=== PATIENT | male | born 1990 | race Caucasian/White ===

== ENCOUNTER 2017-01-19 09:05 | Emergency (ER) | payer BC ==
[~2017-01-19] VITALS: Wt 90.0 kg
[~2017-01-19 09:05] MED LIST: ACET325T33 PO; ACET500C5 PO; ATA50 PO; BENZ100C70 PO; D-ME118S6 PO; IBUP-1542 PO; LORA1TAB54 PO; PRED50 PO; PROM6.2514 PO; RANI150T5 PO; UDROBDM PO
[2017-01-19] MEDS ORDERED: CLOT30CR24 TOP (09:26)
--- NOTE | 2017-01-19 12:12 | ERD ---
DATE OF SERVICE: 01/19/2017 HISTORY OF PRESENT ILLNESS: The patient is a 26-year-old male complaining of a rash on his scalp fo r a few days. Patient states that he has not noticed it before, but got his hair cut and they recom mended he get it evaluated. He states that he has never had anything like this before. It is occas ionally itchy. It is not painful. He has not used any medications on it. PAST MEDICAL HISTORY: Denies any medical problems. ALLERGIES TO MEDICATIONS: DENIES. PAST SURGICAL HISTORY: Denies. HOSPITALIZATIONS: Denies. REVIEW OF SYSTEMS: A 12-point review of systems was done. Refer to HPI for positives, all other sy stems negative. PHYSICAL EXAMINATION: VITAL SIGNS: Temperature is 98.6, pulse 85, blood pressure is 141/84, respiratory rate 20, O2 satur ation 98% on room air. Pain intensity is 0/10. GENERAL: The patient is well-appearing, well-nourished, in no acute distress. HEENT: Atraumatic. Conjunctivae are pink. Pupils equal, round, and reactive to light. There is no s cleral icterus. Tympanic membranes clear bilaterally. Oropharynx clear. No nystagmus or photophobia . CHEST: Clear to auscultation bilaterally. There are no rales, wheezes or rhonchi. HEART: Regular rate and rhythm. No murmurs, clicks, rubs or gallops. No S3 or S4. ABDOMEN: Soft, nontender and nondistended. Good bowel sounds. No rebound or guarding. No gross danuta tonitis. No gross organomegaly or masses. No Moore sign or McBurney point tenderness. SKIN: The patient has erythematous circular patches noted on the scalp with central clearing. Ther e are no pustules. No open sores. DIAGNOSIS: Tinea. MEDICAL DECISION MAKING: Patient's exam is concerning for tinea. PLAN: I have low suspicion for life threatening rash. The patient was told if symptoms change or w orsen, to return to the ER. All other questions answered at time of discharge. DISCHARGE SUMMARY: At the time of departure, patient understood and complied with the plan. He was given a prescription for clotrimazole. Dictated By: VINCE GRUBBS for KAREN ADHIKARI/CHERRI Conf#: [id number] [facility]#: [id number]
== END 2017-01-19 10:27 | disposition home or self-care (01) ==
LOC: FTE 09:05
DX: B35.9 Dermatophytosis, unspecified (principal)
CPT/HCPCS: 99283

== ENCOUNTER 2017-07-26 10:48 | Emergency (ER) | payer BC ==
[~2017-07-26] VITALS: Wt 90.5 kg
[~2017-07-26 10:48] MED LIST changes: +CLOT30CR24 TOP; +PROM6.25 PO; -PROM6.2514 PO
--- NOTE | 2017-07-26 13:47 | ERD ---
ER Documentation Chief Complaint Date/Time DATE: 07/26/17 TIME: 13:43 Chief Complaint intermittent cp, sob x1 mo. sob today. HPI This is a 26-year-old male who presents the emergency department today complaining of intermittent chest pain and shortness of breath for the past 4-6 weeks. Patient states that sometimes he gets the chest pain when he eats spicy food however he is not entirely sure what exacerbates it. States that he is saw his primary care doctor and was given Maalox and inhaler with limited improvement in symptoms. States he was sent here to the emergency department for a chest x-ray. Denies any fevers or chills, cough.Denies any chest pain or shortness of breath currently. ROS All systems reviewed and are negative except as per history of present illness. Medications Home Meds Active Scripts Famotidine* (Pepcid*) 20 Mg Tablet, 20 MG PO BID for 4 Days, #20 TAB Prov:JARRED ARAIZA PA-C 07/26/17 Clotrimazole* (Clotrimazole* AF) 1% - 30 Gm Cream.gm., 1 APPLIC TOP BID for 7 Days, TUB Prov:MOY CHAU PA-C 01/19/17 Guaifenesin-Dextromethorphan* (Robitussin* DM) 100MG/10MG/5ML Syrup, 5 ML PO Q4H Y for COUGH, #120 ML Prov:TUCKER CALI PA-C 11/05/15 Promethazine Hcl* (Promethazine Hcl* Syrup) 6.25 Mg/5 Ml Syrup, 6.25 MG PO Q6H Y for PAIN, #30 ML Prov:TUCKER CALI PA-C 10/13/15 Acetaminophen* (Tylophen*) 500 Mg Capsule, 1 CAP PO Q6H Y for PAIN AND OR ELEVATED TEMP, #20 CAP Prov:TUCKER CALI PA-C 10/09/15 Ibuprofen* (Motrin*) 600 Mg Tab, 600 MG PO Q6H Y for PAIN AND OR ELEVATED TEMP, #30 Prov:TUCKER CALI PA-C 10/09/15 Benzonatate* (Tessalon Perle*) 100 Mg Capsule, 100 MG PO Q8H Y for COUGH, #14 CAP Prov:TUCKER CALI PA-C 10/09/15 Loratadine/Pseudoephedrine* (Claritin-D* 12 Hr) 5-120 Mg Tab.er.12h, 1 TAB PO Q12, #14 TAB.SA Prov:TUCKER CALI PA-C 10/09/15 Dextromethorphan Hb-Promethazine Hcl (Promethazine DM Syrup) 180 Ml Syrup, 5 ML PO Q6H Y for COUGH, #4 OZ Prov:MOY CHAU PA-C 10/05/15 Ibuprofen* (Motrin*) 600 Mg Tab, 600 MG PO Q6, #30 TAB Prov:MOY CHAU PA-C 10/05/15 Reported Medications Prednisone (Prednisone) 50 Mg Tab, 50 MG PO DAILY 08/05/13 Hydroxyzine Hcl* (Atarax*) 50 Mg Tab, 50 MG PO QID 08/05/13 Ranitidine Hcl* (Ranitidine Hcl*) 150 Mg Tablet, 150 MG PO BID 08/05/13 Acetaminophen* (Tylenol*) 325 Mg Tablet, PO 08/04/13 Allergies Allergies: Coded Allergies: No Known Allergy (Unverified , 10/26/16) PMhx/Soc History of Surgery: No Anesthesia Reaction: No Hx Neurological Disorder: No Hx Respiratory Disorders: No Hx Cardiac Disorders: No Hx Psychiatric Problems: No Hx Miscellaneous Medical Probl: No Hx Alcohol Use: No Hx Substance Use: No Hx Tobacco Use: No Smoking Status: Never smoker Physical Exam Vitals Vital Signs Date Time Temp Pulse Resp B/P Pulse Ox O2 Delivery O2 Flow Rate FiO2 07/26/17 11:11 98.6 79 20 127/78 98 Physical Exam Const: NAD Head: Atraumatic Eyes: Normal Conjunctiva ENT: Normal External Ears, Nose and Mouth. Neck: Full range of motion..~ No meningismus. Resp: Clear to auscultation bilaterally. No absent breath sounds. No wheezing. Nontender to palpation. Cardio: Regular rate and rhythm, no murmurs Abd: Soft, non tender, non distended. Normal bowel sounds Skin: No petechiae or rashes Back: No midline or flank tenderness Ext: No cyanosis, or edema Neur: Awake and alert Psych: Normal Mood and Affect Results 24 hrs DIAGNOSTIC IMAGING REPORT Patient: KIM JACKSON : 1990 Age: 26 Sex: M MR #: [id number] DOS: 07/26/17 0000 Ordering MD: JARRED ARAIZA PA-C Location: [facility] Room/Bed: PROCEDURE: XR Chest. CLINICAL INDICATION: chest pain TECHNIQUE: Single frontal view of the chest was obtained COMPARISON: None FINDINGS: The heart and mediastinum are within normal limits. The lungs are clear. There is no pleural effusion or pneumothorax. RPTAT: AA IMPRESSION: No acute disease. .Ricky Cornejo MD, MD Date Time Electronically viewed and signed by .Ricky Cornejo MD, MD on 07/26/2017 14: 00 .S/ CC: JARRED ARAIZA PA-C Procedures/MDM This is a 26-year-old male who presents to the emergency department today complaining of intermittent chest pain in which he initially described was shortness of breath. Patient indicated that the pain when he gets that moves up along his sternum. It does not radiate. This is a patient of Dr. Reed , and patient was sent to the emergency department to see Dr. Emery. Dr. Emery, is not available at this time however given patient's complaints an EKG and chest x-ray was obtained. EKG read and interpreted by Rate [address] elevation. No QT prolongation. Normal sinus rhythm. Low suspicion for acute [place], PE, pericarditis. Chest x-ray shows no acute disease. Low suspicion for pneumonia, PE, abscess, pleural effusion. Patient describes his pain moving up along his sternum and his symptoms appear most consistent with gastric reflux versus gastritis although patient denies any abdominal pain on physical exam. Patient may also have anxiety related symptoms as well. Patient denies any pain currently. He will be given a prescription for Pepcid. He may continue taking the Maalox and inhaler as needed. I did place a call to Dr. Corona and he is in agreement with the plan. Departure Diagnosis: Primary Impression: Chest pain Chest pain type: unspecified Qualified Code: R07.9 - Chest pain, unspecified type Condition: JARRED Camacho PA-C Jul 26, 2017 13:47
--- NOTE | 2017-07-26 14:00 | RADRPT ---
PROCEDURE: XR Chest. CLINICAL INDICATION: chest pain TECHNIQUE: Single frontal view of the chest was obtained COMPARISON: None FINDINGS: The heart and mediastinum are within normal limits. The lungs are clear. There is no pleural effusion or pneumothorax. RPTAT: AA IMPRESSION: No acute disease. .Ricky oCrnejo MD, Date Time Electronically viewed and signed by .Ricky Cornejo MD, on 07/26/2017 14:00 .S/
[2017-07-26] MEDS ORDERED: FAMO-96 PO (14:23)
[2017-07-26 14:39] VITALS: BP 121/77; PULSE 68; RESP 18
== END 2017-07-26 14:45 | disposition home or self-care (01) ==
LOC: FTE 10:48
DX: R07.9 Chest pain, unspecified (principal)
CPT/HCPCS: 71010; 93005; Z7502

== ENCOUNTER 2018-02-05 18:12 | Emergency (ER) | END 2018-02-05 23:46 | disposition home or self-care (01) ==

== ENCOUNTER → 2019-06-01 | Emergency (ER) | payer BC ==
[~2019-06-01] VITALS: Ht 177.8 cm; Wt 101.8 kg
[~2019-06-01] MED LIST changes: -ATA50 PO; +BENZ-6 PO; -BENZ100C70 PO; +FAMO-96 PO; +GUAI5SYR2 PO; +HYDR-4011 PO; +NPH10OT LEFT EAR; -PROM6.25 PO; +PROM6.2515 PO; -UDROBDM PO; +[UNRECOGNIZED DRUG - CODE] PO
[2019-06-01 08:33] VITALS: BP 119/68; PULSE 76; RESP 18; Ht 177.8 cm; Wt 101.8 kg
--- NOTE | 2019-06-01 09:07 | ERD ---
ER Documentation Chief Complaint Chief Complaint lt ear feels clogged x 1 week HPI 28-year-old male who presents with decreased hearing in the left ear since yesterday. He states yesterday he went swimming and after he went swimming he was having some decreased hearing so he used Q-tips to try to clean his ear but it made it worse. He has no pain. No bleeding from the ear. No fever. No cough or recent illness. ROS All systems reviewed and are negative except as per history of present illness. Medications Home Meds Active Scripts Neomycin/Polymyxin/Hydrocort* (Cortisporin* Otic) 10 Ml Susp, 4 DROP LEFT EAR QID for 7 Days, EA Prov:RAQUEL MONROE PA-C 06/01/19 Hydrocodone/Acetaminophen ([place] 5-325 Tablet) 1 Each Tablet, 1 TAB PO Q6H PRN for PAIN, #7 TAB Prov:KHOA MCNEAL PA-C 02/05/18 Ibuprofen* (Motrin*) 600 Mg Tab, 600 MG PO Q6, #30 TAB Prov:KHOA MCNEAL PA-C 02/05/18 Famotidine* (Pepcid*) 20 Mg Tablet, 20 MG PO BID for 4 Days, #20 TAB Prov:JARRED ARAIZA PA-C 07/26/17 Clotrimazole* (Clotrimazole* AF) 1% - 30 Gm Cream.gm., 1 APPLIC TOP BID for 7 Days, TUB Prov:MOY CHAU PA-C 01/19/17 Guaifenesin-Dextromethorphan* (Robitussin* DM) 100MG/10MG/5ML Syrup, 5 ML PO Q4H PRN for COUGH, #120 ML Prov:TUCKER CALI PA-C 11/05/15 Promethazine Hcl* (Promethazine Hcl* Syrup) 6.25 Mg/5 Ml Syrup, 6.25 MG PO Q6H PRN for PAIN, #30 ML Prov:TUCKER CALI PA-C 10/13/15 Acetaminophen* (Tylophen*) 500 Mg Capsule, 1 CAP PO Q6H PRN for PAIN AND OR ELEVATED TEMP, #20 CAP Prov:TUCKER CALI PA-C 10/09/15 Ibuprofen* (Motrin*) 600 Mg Tab, 600 MG PO Q6H PRN for PAIN AND OR ELEVATED TEMP, #30 Prov:TUCKER CALI PA-C 10/09/15 Benzonatate* (Tessalon Perle*) 100 Mg Capsule, 100 MG PO Q8H PRN for COUGH, #14 CAP Prov:TUCKER CALI PA-C 10/09/15 Loratadine/Pseudoephedrine* (Claritin-D* 12 Hr) 5-120 Mg Tab.er.12h, 1 TAB PO Q12, #14 TAB.SA Prov:TUCKER CALI PA-C 10/09/15 Dextromethorphan Hb-Promethazine Hcl (Promethazine DM Syrup) 180 Ml Syrup, 5 ML PO Q6H PRN for COUGH, #4 OZ Prov:MOY CHAU PA-C 10/05/15 Ibuprofen* (Motrin*) 600 Mg Tab, 600 MG PO Q6, #30 TAB Prov:MOY CHAU PA-C 10/05/15 Reported Medications Prednisone (Prednisone) 50 Mg Tab, 50 MG PO DAILY 08/05/13 Hydroxyzine Hcl* (Atarax*) 50 Mg Tab, 50 MG PO QID 08/05/13 Ranitidine Hcl* (Ranitidine Hcl*) 150 Mg Tablet, 150 MG PO BID 08/05/13 Acetaminophen* (Tylenol*) 325 Mg Tablet, PO 08/04/13 Allergies Allergies: Coded Allergies: No Known Allergy (Unverified , 10/26/16) PMhx/Soc History of Surgery: No Anesthesia Reaction: No Hx Neurological Disorder: No Hx Respiratory Disorders: No Hx Cardiac Disorders: No Hx Psychiatric Problems: No Hx Miscellaneous Medical Probl: No Hx Alcohol Use: No Hx Substance Use: No Hx Tobacco Use: No FmHx Family History: No diabetes Physical Exam Vitals Vital Signs Date Temp Pulse Resp B/P (MAP) Pulse Ox O2 O2 Flow FiO2 Time Delivery Rate 06/01/19 98.2 76 18 119/68 98 08:33 (85) Physical Exam INITIAL VITAL SIGNS: Reviewed by me GENERAL: Awake, alert and oriented x 4, well appearing, nontoxic, speaking in full sentences. No acute distress HEAD: Atraumatic NECK: Supple. No masses. Full range of motion. No meningismus. No midline tenderness. EYES: EOMI. PERRL. EAR: Right ear within normal limits, left ear cerumen impaction unable to visualize tympanic membrane THROAT: No tonilar erythema or edema. No exudates. Uvula midline. No kissing tonsils. RESPIRATORY: Clear to auscultation bilaterally. Symmetric chest wall rise. No wheezing or rales. No accessory muscle use. CV: Regular rate and rhythm. No murmurs, rubs, or gallops. Procedures/MDM This is a well-appearing 28-year-old male who has cerumen impaction. Ear lavage was performed and he felt much better afterwards. There was a little bit of irritation in the ear canal slight redness after ear lavage and therefore patient was discharged with Cortisporin eardrops. Patient counseled regarding my diagnostic impression and care plan. Prior to discharge all questions answered. Pt agrees with treatment plan and understands strict return precautions. Pt is instructed to follow up with primary care provider within 24- 48 hours. Precautionary instructions provided including instructions to return to the ER if not improving or for any worsening or changing symptoms or concerns. Departure Diagnosis: Primary Impression: Cerumen impaction Condition: Stable RAQUEL MONROE PA-C Jun 01, 2019 09:07
== END | disposition home or self-care (01) ==
LOC: FTE 08:29
DX: H61.22 Impacted cerumen, left ear (principal)